=== PATIENT | male | born 1995 | race African-American/Black ===

== ENCOUNTER 2019-10-08 02:09 | Emergency (ER) | payer OTHER, SELFPAY ==
--- NOTE | ~2019-10-08 | CT_ITS ---
EXAMINATION: CT brain wo con EXAM DATE: 10/08/2019 03:01 INDICATION: Headaches, posterior head and neck pain. TECHNIQUE: Spiral CT of the head was performed without contrast. Axial, coronal and sagittal images were reviewed. The dose-length product (DLP) for this examination was 681.00 mGy-cm. The exposure w as tailored according to patient size, and iterative reconstruction (ASIR) was used as additional dos e reduction technique. Comparison is made to prior examination from 11/28/2016. FINDINGS: There is no acute intraparenchymal hemorrhage. No evidence of intraparenchymal brain mass lesion. No evidence of acute infarction. There is no mass effect or midline shift. The ventricles are normal in size. There are no extra-axial collections. There are no acute calvarial fractures. T he orbits are unremarkable. Soft tissue is unremarkable. The visualized sinuses and mastoid air hernandez ls are well aerated. IMPRESSION: 1. No acute intracranial findings. Reviewed, dictated and finalized at location A.
[2019-10-08 02:17] VITALS: BP 176/97; PULSE 104; RESP 23; TEMP 36.7; O2SAT 100
--- NOTE | 2019-10-08 02:32 | ECG_ITS ---
Measurements Intervals [place] Rate: 84 P: 15 [place]: 225 QRS: 51 QRSD: 102 T: 6 QT: 343 QTc: 406 Interpretive Statements SINUS RHYTHM WITH FIRST DEGREE AV BLOCK ABNORMAL ECG Electronically Signed On 10-08-2019 6:58:18 CDT by Blaine Alvarez D.O.
--- NOTE | 2019-10-08 02:33 | ED.HA ---
HPI - Headache General Chief Complaint: Headache Stated Complaint: HARRIS, HIGH HR, SHOULDER PAIN Time Seen by Provider: 10/08/19 02:18 Source: patient Mode of arrival: ambulatory Limitations: no limitations History of Present Illness HPI Narrative: This patient is a 24 year old male who presents for evaluation of a headache. Patient states around 1030 pm tonight he developed mild headache to top of his headache. Over past 2 hours his headache has worsened. He describes throbbing pain that radiates down his neck and into his shoulders. His pain is worse with movement of his headache. He also reports nausea and vomiting but he thinks that may be due to his GERD. HE denies weakness, fever, sob, cough, numbness or tingling. He took claritin for allergies after onset of his headache. MD elicited complaint: headache Related Data Allergies Allergy/AdvReac Type Severity Reaction Status Date / Time No Known Allergies Allergy Verified 10/08/19 02:21 Review of Systems Review of Systems: All systems reviewed & are unremarkable except as noted in HPI and below Constitutional: Constitutional: Denies chills and Denies fever(s) Eyes: Eyes: Denies change in vision and Denies photophobia ENT: Denies dizziness and Denies nasal congestion Cardiovascular: Cardiovascular: Denies chest pain Respiratory: Respiratory: Denies cough and Denies dyspnea Gastrointestinal: Gastrointestinal: Denies abdominal pain, Reports nausea and Reports vomiting Neurologic: Denies dizziness, Reports headache(s), Denies focal weakness, Denies numbness and Denies weakness PMFSH Past Medical History Medical History (Updated 10/08/19 @ 04:56 by Ida Shaffer MD) GERD (gastroesophageal reflux disease) Surgical History Surgical History (Updated 10/08/19 @ 02:34 by Ida Shaffer MD) No significant past surgical history Social History Social History (Updated 10/08/19 @ 02:35 by Ida Shaffer MD) Tobacco type: e-cigarettes/vaping Alcohol intake: current Substance use type: marijuana Gender identity (if verbalized by the patient): Male Exam Narrative: Exam Narrative: GENERAL: Well-appearing, well-nourished, and in no acute distress. HEAD: Normocephalic, atraumatic EYES: PERRLA and EOMI, conjunctiva clear without discharge EARS: TM's clear bilaterally without erythema or dullness NOSE: Nares clear, no rhinorrhea or epistaxis THROAT:Mucous membranes moist, Oropharynx normal without erythema, exudate, peritonsillar swelling or fluctuance NECK: Supple, without lymphadenopathy or mass RESPIRATORY: No respiratory distress, Airway patent, Respirations non-labored, Clear to auscultation without rales, rhonchi or wheeze HEART: Regular rate and rhythm. No murmur heard. Normal peripheral pulses. ABDOMEN: Soft, nontender, nondistended, normal active bowel sounds. No masses. No rebound or guarding, No organomegaly. EXTREMITIES: No edema, normal strength with full range of motion. SKIN: Warm, dry, normal color without rash NEURO: Alert and oriented x3. CN 2-12 grossly intact. No focal deficits. PSYCH: Normal mood and affect. Neck: Neck: full ROM, no lymphadenopathy, no meningeal signs, trachea midline, supple and tender (paraspinal muscle tenderness) Thyroid: thyroid normal Course Reevaluation(s) Reevaluation #1: PAtient reports that his headache has resolved. His blood pressure has also normalized to 133/87. I Discussed discharge plan with patient. Date: 10/08/19 Time: 04:54 Vital Signs Vital signs: Vital Signs Temperature 98.1 F 10/08/19 02:17 Pulse Rate 104 H 10/08/19 02:17 Respiratory Rate 23 H 10/08/19 02:17 Blood Pressure 176/97 H 10/08/19 02:17 Pulse Oximetry 100 10/08/19 02:17 Temperature 98.1 F 10/08/19 02:17 Pulse Rate 85 10/08/19 03:49 Respiratory Rate 20 10/08/19 03:49 Blood Pressure 144/79 H 10/08/19 03:49 Pulse Oximetry 97 10/08/19 03:49 MDM - Headache Differential
[2019-10-08] MEDS: ONDANSETRON INJ 4 MG/2 ML VIAL IV PUSH (02:43)
[2019-10-08] MEDS: diazePAM 5 MG TABLET PO (02:44)
[2019-10-08 02:52] VITALS: BP 168/95; PULSE 82; RESP 20; O2SAT 99
[2019-10-08 03:49] VITALS: BP 144/79; PULSE 85; RESP 20; O2SAT 97
== END 2019-10-08 05:29 | disposition home or self-care (01) ==
PROVIDERS: Emergency Provider General Practice
DX: G44.209 Tension-type headache, unspecified, not intractable (principal); K21.9 Gastro-esophageal reflux disease without esophagitis; F17.290 Nicotine dependence, other tobacco product, uncomplicated; I44.0 Atrioventricular block, first degree
CPT/HCPCS: 70450; 93005; 96365; 96375; 99284; A9270; J0131; J2405

== ENCOUNTER 2020-02-16 16:03 | Emergency (ER) | payer OTHER, SELFPAY ==
--- NOTE | ~2020-02-16 | XR_ITS ---
EXAMINATION: XR chest 1V portable INDICATION: Vomiting and chest pain TECHNIQUE: Portable AP chest at 1725 hours COMPARISON: 09/15/2017 FINDINGS: The lungs are free of acute opacities. There is no pleural effusion or pneumothorax. The ca rdiomediastinal silhouette is normal. The visualized bones and soft tissues are unremarkable. IMPRESSION: 1. No acute cardiopulmonary abnormality. Reviewed, dictated and finalized at location A. ORT DUTY MANAGER
[2020-02-16 16:11] VITALS: BP 152/90; PULSE 96; RESP 20; TEMP 37; O2SAT 100
--- NOTE | 2020-02-16 17:45 | PC.NURSE ---
patient brought to ED room 19 from ED room 7 with c/o headache, nausea and abdomen pain. see initial notes. alert. oriented. no change in condition from time of triage. ambulatory. fiancee at bedside. assessments documented. SL inserted. labs drawn.
[2020-02-16 17:49] LABS: Basophils Percent Auto 0.3 % (0.2-1.2); Eosinophils Absolute Auto 0.1 K/mm3 (0-0.3); Hematocrit 42.8 % (42.0-52.0); Hemoglobin 14.1 g/dL (14.0-18.0); Immature Granulocyte Absolute 0.01 K/mm3 (0.00-0.031); Immature Granulocyte Percent A 0.3 % (0-0.5); Lymphocytes Absolute Auto 0.93 K/mm3 (0.9-3.2); Lymphocytes Percent Auto 23.5 % (18.3-44.2); Mean Corpuscular HGB Conc 32.9 g/dl (32-36); Mean Corpuscular Hemoglobin 29.1 pg (26-34); Mean Corpuscular Volume 88.4 fl (80-100); Mean Platelet Volume 9.6 fl (7.4-10.4); Monocytes Absolute Auto 0.6 K/mm3 (0.1-0.6); Monocytes Percent Auto 15.7 % (2.6-8.5); Neutrophils Absolute Auto 2.3 K/mm3 (1.3-6.7); Neutrophils Percent Auto 58.2 % (45.5-73.1); Platelet Count Result 223 k/mm3 (150-375); Red Blood Count 4.84 M/mm3 (4.6-6.20); Red Cell Distribution Width 13.2 % (11.5-14.5)
[2020-02-16 18:02] LABS: Alanine Aminotransferase 23 U/L (4-50); Albumin Level 4.3 g/dL (3.5-5.1); Alkaline Phosphatase 95 U/L (38-126); Anion Gap 7 mmol/L (8-16); Aspartate Amino Transferase 20 U/L (17-59); Bilirubin,Total 0.3 mg/dL (0.2-1.3); Blood Urea Nitrogen 7 mg/dL (9-20); Carbon Dioxide 29 mmol/L (22-30); Chloride 101 mmol/L (98-107); Estimated CRCL calculation 159 ml/min; Estimated Glomerular Filt Rate > 60; Glucose 89 mg/dL (75-110); Lipase 159 U/L (23-300); Potassium 3.8 mmol/L (3.4-5.0); Sodium 137 mmol/L (137-145)
--- NOTE | 2020-02-16 18:45 | PC.NURSE ---
patient drinking sprite. bladder scan done and provider updated. sitting on stretcher. waiting for urine results. updated on expected wait time.
[2020-02-16] MEDS: ONDANSETRON INJ 4 MG/2 ML VIAL IV PUSH (18:49)
[2020-02-16 18:50] LABS: Add Urine Microscopic? YES; Appearance Urine Clear (Clear); Bacteria Urine Trace /hpf; Bilirubin Urine Negative (Negative); Blood Urine Negative (Negative); Color Urine Yellow (Yellow); Glucose Urine UA Negative (Negative); Ketones Urine Negative (Negative); Leukocyte Esterase Ur Negative LEU/UL (Negative); Mucus Urine Heavy /lpf; Nitrate Urine Negative (Negative); Protein Urine 1+ mg/dL (Negative); RBC Urine 0-2 /hpf (0-2); Urobilinogen Urine Negative mg/dL (<2.0); WBC Urine 0-3 /hpf
[2020-02-16 18:57] LABS: Specific Grav Ur 1.035 (1.001-1.035)
--- NOTE | 2020-02-16 19:58 | ED.GENADULT ---
HPI - General Adult General Chief complaint: Headache Stated complaint: headache Time Seen by Provider: 02/16/20 17:15 Source: patient Mode of arrival: ambulatory Limitations: no limitations History of Present Illness HPI narrative: Patient presents with chief complaint of diffuse abdominal pain and two episodes of vomiting while at work today. He also reports that he has had a full sensation to his head. Patient states he has a history of hypertension but denies any other health issues. Patient states he also felt he should come in because he noticed that his blood pressure lower when he sat down but when he stood up it elevated. Patient states that he felt warm but has not documented any fevers. Related Data Allergies Allergy/AdvReac Type Severity Reaction Status Date / Time No Known Allergies Allergy Verified 10/08/19 02:21 Review of Systems Review of Systems: Narrative: CONSTITUTIONAL: Reports feeling warm but did not document fever denies chills, or sweats. EYES: Denies visual changes, redness, or discharge. ENT: Denies rhinorrhea, congestion, sore throat, or otalgia. CARDIOVASCULAR: Denies chest pain, palpitations, or edema. RESPIRATORY: Denies cough or dyspnea. GASTROINTESTINAL: Reports diffuse upper abdominal pain, nausea, vomiting denies diarrhea or bloody stools. GENITOURINARY: Denies dysuria or hematuria. SKIN: Denies rash or itching. MUSCULOSKELETAL: Denies back pain, joint pain, or myalgia. NEUROLOGIC: Reports diffuse headache denies numbness, dizziness, or weakness. PSYCHIATRIC: Denies anxiety or depression. [facility] Past Medical History Medical History (Updated 02/16/20 @ 20:02 by Julius Mejia PA-C) GERD (gastroesophageal reflux disease) Surgical History Surgical History (Updated 10/08/19 @ 02:34 by Ida Shaffer MD) No significant past surgical history Social History Social History (Updated 10/08/19 @ 02:35 by Ida Shaffer MD) Tobacco type: e-cigarettes/vaping Alcohol intake: current Substance use type: marijuana Gender identity (if verbalized by the patient): Male Exam Narrative: Exam Narrative: GENERAL: Well-appearing, well-nourished, and in no acute distress. HEAD: Normocephalic, atraumatic. EYES: PERRLA and EOMI. ENT: Nares clear, no rhinorrhea or epistaxis. Mucous membranes moist. Oropharynx without tonsillar hypertrophy exudate or other lesions. Bilateral TMs pearly lowe nonbulging NECK: Supple. No adenopathy or masses. Range of motion intact no nuchal rigidity or stiffness. CHEST: Clear to auscultation. No respiratory distress. No wheezes rales or rhonchi HEART: Regular rate and rhythm. No murmur heard. Normal peripheral pulses. ABDOMEN: Soft, mild LUQ tenderness, nondistended, normal active bowel sounds. EXTREMITIES: Normal range of motion. No edema. SKIN: Warm, dry, no rash. NEURO: No focal deficits. Alert and oriented x3. PSYCH: Normal mood and affect. Course Vital Signs Vital signs: Vital Signs Temperature 98.6 F 02/16/20 16:11 Pulse Rate 96 02/16/20 16:11 Respiratory Rate 20 02/16/20 16:11 Blood Pressure 152/90 H 02/16/20 16:11 Pulse Oximetry 100 02/16/20 16:11 Temperature 98.6 F 02/16/20 16:11 Pulse Rate 96 02/16/20 16:11 Respiratory Rate 20 02/16/20 16:11 Blood Pressure 152/90 H 02/16/20 16:11 Pulse Oximetry 100 02/16/20 16:11 Medical Decision Making MDM Narrative Medical decision making narrative: Patient has improvement in headache and discomfort with Tylenol. Patient has not had any additional vomiting in the emergency room even without administration of Zofran. Patient has been given Zofran for nausea has been able to hold down p.o. challenge. Patient's lab work and urine analysis and chest x-ray is insignificant. Patient instructed to go home rest drink fluids and quarantine himself while his Covid test are pending. Patient is instructed to call the primary care consumer experience consultant to obtain his Covid test results in 48 to 72 h
[2020-02-17 20:04] LABS: SARS-CoV-2 RNA PCR Positive
== END 2020-02-16 20:15 | disposition home or self-care (01) ==
PROVIDERS: Physician Assistant; Emergency Provider Emergency Medicine
DX: R10.84 Generalized abdominal pain (principal); R11.2 Nausea with vomiting, unspecified; K21.9 Gastro-esophageal reflux disease without esophagitis
CPT/HCPCS: 36415; 71045; 80053; 81001; 83690; 85025; 87635; 87804; 96365; 96375; 99284; C9803; J0131; J2405; U0003

== ENCOUNTER 2022-02-15 13:45 | Emergency (ER) | payer SELFPAY ==
--- NOTE | ~2022-02-15 | XR_ITS ---
EXAMINATION: XR chest 2V 02/15/2022 14:28 INDICATION: Mid chest pain. PROCEDURE: 2 view chest COMPARISON: Comparison to multiple prior studies sequentially, with oldest reviewed study dated 12/09. FINDINGS: The lungs are clear. The cardiomediastinal silhouette is within normal limits. There are no pleural effusions. There is no pneumothorax suspected. IMPRESSION: 1: NO ACUTE CARDIOPULMONARY DISEASE. Reviewed, dictated and finalized at location A. L ROLLING MACHINE OPERATOR
[2022-02-15 13:49] VITALS: BP 142/76; PULSE 113; RESP 16; TEMP 36.7; O2SAT 100
--- NOTE | 2022-02-15 13:49 | ECG_ITS ---
Measurements Intervals [place] Rate: 111 P: 53 [place]: 204 QRS: 53 QRSD: 92 T: 51 QT: 325 QTc: 443 Interpretive Statements SINUS TACHYCARDIA WITH FIRST-DEGREE AV BLOCK NONSPECIFIC T-WAVE ABNORMALITY ABNORMAL RHYTHM ECG COMPARED TO ECG 10/08/2019 03:08:53 PATIENT IS MORE TACHYCARDIC NO OTHER CHANGE Electronically Signed On 02-15-2022 17:23:21 [employer] BR[employer]ER by Levi Fontenot M.D.
[2022-02-15 14:13] LABS: Basophils Percent Auto 0.2 % (0.2-1.2); Eosinophils Absolute Auto 0.1 K/mm3 (0-0.3); Eosinophils Percent Auto 2.3 % (0-4.4); Hematocrit 40.7 % (42.0-52.0); Hemoglobin 13.2 g/dL (14.0-18.0); Immature Granulocyte Absolute 0.01 K/mm3 (0.00-0.031); Immature Granulocyte Percent A 0.2 % (0-0.5); Lymphocytes Percent Auto 30.9 % (18.3-44.2); Mean Corpuscular HGB Conc 32.4 g/dl (32-36); Mean Corpuscular Hemoglobin 29.5 pg (26-34); Mean Corpuscular Volume 91.1 fl (80-100); Mean Platelet Volume 9.7 fl (7.4-10.4); Monocytes Absolute Auto 0.4 K/mm3 (0.1-0.6); Monocytes Percent Auto 7.8 % (2.6-8.5); Neutrophils Absolute Auto 2.9 K/mm3 (1.3-6.7); Neutrophils Percent Auto 58.6 % (45.5-73.1); Platelet Count Result 235 k/mm3 (150-375); Red Blood Count 4.47 M/mm3 (4.6-6.20); Red Cell Distribution Width 13.2 % (11.5-14.5); White Blood Count 4.9 K/mm3 (4.5-10.0)
[2022-02-15 14:32] LABS: INR 1.3; Partial Thromboplastin Time 28.3 SECONDS (22.3-36.8); Prothrombin Time 15.2 Seconds (11.1-14.7)
[2022-02-15 14:34] LABS: Alanine Aminotransferase 22 U/L (6-50); Albumin Level 4.5 g/dL (3.5-5.1); Alkaline Phosphatase 69 U/L (38-126); Anion Gap 7 mmol/L (8-16); Aspartate Amino Transferase 19 U/L (17-59); Bilirubin,Total 0.3 mg/dL (0.2-1.3); Blood Urea Nitrogen 12 mg/dL (9-20); Calcium 8.9 mg/dL (8.4-10.2); Carbon Dioxide 29 mmol/L (22-30); Chloride 101 mmol/L (98-107); Estimated CRCL calculation 131 ml/min; Estimated Glomerular Filt Rate > 60; Glucose 90 mg/dL (65-110); Lipase 178 U/L (23-300); Potassium 3.5 mmol/L (3.4-5.0); Sodium 137 mmol/L (137-145)
[2022-02-15 14:45] LABS: Troponin I < 0.012 ng/mL (0.000-0.034)
--- NOTE | 2022-02-15 15:54 | ED.CHESTPAIN ---
HPI - Chest Pain General Chief Complaint: Chest Pain Stated Complaint: chest pain, palpitations and SOB Time Seen by Provider: 02/15/22 15:31 Related Data Allergies Allergy/AdvReac Type Severity Reaction Status Date / Time No Known Allergies Allergy Verified 02/15/22 13:46 [facility] Past Medical History Medical History (Updated 02/15/22 @ 16:36 by Willie Stallings APRN) GERD (gastroesophageal reflux disease) Surgical History Surgical History (Updated 10/08/19 @ 02:34 by Ida Shaffer MD) No significant past surgical history Social History Social History (Updated 10/08/19 @ 02:35 by Ida Shaffer MD) Tobacco type: e-cigarettes/vaping Alcohol intake: current Substance use type: marijuana Gender identity (if verbalized by the patient): Male Course Vital Signs Vital signs: Vital Signs Temperature 36.7 C 02/15/22 13:49 Pulse Rate 113 H 02/15/22 13:49 Respiratory Rate 16 02/15/22 13:49 Blood Pressure 142/76 H 02/15/22 13:49 Pulse Oximetry 100 02/15/22 13:49 Oxygen Delivery Room Air 02/15/22 13:49 Temperature 36.9 C 02/15/22 17:12 Pulse Rate 87 02/15/22 17:12 Respiratory Rate 17 02/15/22 17:12 Blood Pressure 134/84 02/15/22 17:12 Pulse Oximetry 100 02/15/22 17:12 Oxygen Delivery Room Air 02/15/22 13:49 MDM - Chest Pain Lab Data 02/15/22 14:02 02/15/22 14:02 Labs: Lab Results 02/15/22 02/15/22 02/15/22 Range/Units 14:02 14:02 14:02 WBC 4.9 (4.5-10.0) K/mm3 RBC 4.47 L (4.6-6.20) M/mm3 Hgb 13.2 L (14.0-18.0) g/dL Hct 40.7 L (42.0-52.0) % MCV 91.1 (80-100) fl MCH 29.5 (26-34) pg MCHC 32.4 (32-36) g/dl RDW 13.2 (11.5-14.5) % Plt Count 235 (150-375) k/mm3 MPV 9.7 (7.4-10.4) fl Immature Gran % (Auto) 0.2 (0-0.5) % Neut % (Auto) 58.6 (45.5-73.1) % Lymph % (Auto) 30.9 (18.3-44.2) % Schleicher % (Auto) 7.8 (2.6-8.5) % Eos % (Auto) 2.3 (0-4.4) % Baso % (Auto) 0.2 (0.2-1.2) % Lymph # (Auto) 1.50 (0.9-3.2) K/mm3 Schleicher # (Auto) 0.4 (0.1-0.6) K/mm3 Eos # (Auto) 0.1 (0-0.3) K/mm3 Baso # (Auto) 0.0 (0.0-0.1) K/mm3 Abs Immat Gran (auto) 0.01 (0.00-0.031) K/mm3 Absolute Neuts (auto) 2.9 (1.3-6.7) K/mm3 Absolute Nucleated RBC 0.0 (0.0-0.012) K/mm3 Nucleated RBC % 0.0 (0.0-0.2) % PT 15.2 H (11.1-14.7) Seconds INR 1.3 APTT 28.3 (22.3-36.8) SECONDS Sodium 137 (137-145) mmol/L Potassium 3.5 (3.4-5.0) mmol/L Chloride 101 (98-107) mmol/L Carbon Dioxide 29 (22-30) mmol/L Anion Gap 7 L (8-16) mmol/L BUN 12 D (9-20) mg/dL Creatinine 1.00 (0.7-1.3) mg/dL Estim Creat Clear Calc 131 ml/min Estimated GFR > 60 (59 - ) Glucose 90 (65-110) mg/dL Calcium 8.9 (8.4-10.2) mg/dL Total Bilirubin 0.3 (0.2-1.3) mg/dL AST 19 (17-59) U/L ALT 22 (6-50) U/L Alkaline Phosphatase 69 (38-126) U/L Troponin I < 0.012 (0.000-0.034) ng/mL Total Protein 8.0 (6.3-8.2) g/dL Albumin 4.5 (3.5-5.1) g/dL Lipase 178 (23-300) U/L 02/15/22 Range/Units 16:44 WBC (4.5-10.0) K/mm3 RBC (4.6-6.20) M/mm3 Hgb (14.0-18.0) g/dL Hct (42.0-52.0) % MCV (80-100) fl MCH (26-34) pg MCHC (32-36) g/dl RDW (11.5-14.5) % Plt Count (150-375) k/mm3 MPV (7.4-10.4) fl Immature Gran % (Auto) (0-0.5) % Neut % (Auto) (45.5-73.1) % Lymph % (Auto) (18.3-44.2) % Schleicher % (Auto) (2.6-8.5) % Eos % (Auto) (0-4.4) % Baso % (Auto) (0.2-1.2) % Lymph # (Auto) (0.9-3.2) K/mm3 Schleicher # (Auto) (0.1-0.6) K/mm3 Eos # (Auto) (0-0.3) K/mm3 Baso # (Auto) (0.0-0.1) K/mm3 Abs Immat Gran (auto) (0.00-0.031) K/mm3 Absolute Neuts (auto) (1.3-6.7) K/mm3 Absolute Nucleated RBC (0.0-0.012) K/mm3 Nucleated RBC % (0.0-0.2) % PT (11.1-14.7) Seconds INR APTT (22.3-36.8) SECONDS Sodium (137-145) mmol/L [place]
[2022-02-15 17:12] VITALS: BP 134/84; PULSE 87; RESP 17; TEMP 36.9; O2SAT 100
[2022-02-15 17:16] LABS: Troponin I < 0.012 ng/mL (0.000-0.034)
== END 2022-02-15 17:35 | disposition home or self-care (01) ==
PROVIDERS: Emergency Medicine; Emergency Provider Nurse Practitioner Family
DX: R07.89 Other chest pain (principal); K21.9 Gastro-esophageal reflux disease without esophagitis; R00.0 Tachycardia, unspecified; I44.0 Atrioventricular block, first degree; R94.31 Abnormal electrocardiogram [ECG] [EKG]
CPT/HCPCS: 36415; 71046; 80053; 83690; 84484; 85025; 85610; 85730; 93005; 96374; 99284; J1100

== ENCOUNTER 2022-04-03 19:22 | Emergency (ER) | payer SELFPAY ==
[2022-04-03] VITALS (14 sets, daily range): BP systolic 116–140; BP diastolic 79–89; PULSE 59–77; RESP 14–22; TEMP 36.9; O2SAT 93–100
--- NOTE | ~2022-04-03 | US_ITS ---
EXAMINATION: US abdomen limited DATE: 04/03/2022 21:14 INDICATION: RUQ abd pain TECHNIQUE: Multiple grayscale and Doppler ultrasound images of limited portions of the abdomen were o btained. COMPARISON: None available. FINDINGS: Pancreas is poorly visualized. The liver is mildly enlarged with normal echogenicity and ec hotexture. No surface nodularity. Normal hepatopetal flow in the main portal vein. The gallbladder is contracted and therefore inadequately evaluated. No pericholecystic fluid. No definite gallstone. Th e common bile duct measures 4 mm. There was no sonographic Noland sign. IMPRESSION: Contracted gallbladder which significantly limits evaluation. Pancreas is secured by bowel gas. No in tra or extrahepatic bile duct dilation. Mild hepatomegaly Reviewed, dictated and finalized at location K. OSION CONTROL ENGINEER IMPRESSION: Contracted gallbladder which significantly limits evaluation. Pancreas is secur ed by bowel gas. No intra or extrahepatic bile duct dilation. Mild hepatomegaly
[2022-04-03 20:10] LABS: Basophils Percent Auto 0.3 % (0.2-1.2); Eosinophils Absolute Auto 0.2 K/mm3 (0-0.3); Eosinophils Percent Auto 2.9 % (0-4.4); Hematocrit 41.5 % (42.0-52.0); Hemoglobin 13.4 g/dL (14.0-18.0); Immature Granulocyte Absolute 0.01 K/mm3 (0.00-0.031); Immature Granulocyte Percent A 0.2 % (0-0.5); Lymphocytes Absolute Auto 2.87 K/mm3 (0.9-3.2); Lymphocytes Percent Auto 46.5 % (18.3-44.2); Mean Corpuscular HGB Conc 32.3 g/dl (32-36); Mean Corpuscular Hemoglobin 29.4 pg (26-34); Mean Platelet Volume 9.8 fl (7.4-10.4); Monocytes Absolute Auto 0.6 K/mm3 (0.1-0.6); Monocytes Percent Auto 9.1 % (2.6-8.5); Neutrophils Absolute Auto 2.5 K/mm3 (1.3-6.7); Platelet Count Result 252 k/mm3 (150-375); Red Blood Count 4.56 M/mm3 (4.6-6.20); Red Cell Distribution Width 13.1 % (11.5-14.5); White Blood Count 6.2 K/mm3 (4.5-10.0)
--- NOTE | 2022-04-03 20:11 | ED.ABDPAIN ---
HPI - Abdominal Pain General Chief Complaint: Abdominal Pain Stated Complaint: abdominal pain Time Seen by Provider: 04/03/22 19:50 History of Present Illness HPI narrative: 26-year-old male here for evaluation of epigastric abdominal pain over the past 2 days. He describes the pain as a burning sensation, associated with nausea, vomiting diarrhea. Reports decreased interest in p.o. over the past several days. He has a history of acid reflux but states this feels different. He denies any fevers, chills, blood in his stools or vomit, sick contacts. Last p.o. intake was chicken pot pie. Related Data Allergies Allergy/AdvReac Type Severity Reaction Status Date / Time No Known Allergies Allergy Verified 04/03/22 19:49 Review of Systems Review of Systems: Gen: Denies fevers or chills Eyes: Denies eye pain or visual change ENT: Denies congestion Respiratory: Denies shortness of breath or cough CV: Denies chest pain or palpitations GI: Reports abdominal pain, nausea, vomiting and diarrhea : denies burning, urgency, frequency or hematuria Musculoskeletal: Denies back pain or muscle pain Neuro: Denies numbness, tingling, weakness or focal weakness Skin: Denies rash Except as documented, all other systems reviewed and negative PMFSH Past Medical History Medical History GERD (gastroesophageal reflux disease) Surgical History Surgical History No significant past surgical history Social History Social History (Updated 10/08/19 @ 02:35 by Ida Shaffer MD) Tobacco type: e-cigarettes/vaping Alcohol intake: current Substance use type: marijuana Gender identity (if verbalized by the patient): Male Exam Narrative: APPEARANCE: Well appearing, no pain in distress, well-nourished. Head: Normocephalic and atraumatic. EYES: PERRLA/EOMI, conjunctivae clear NOSE: No nasal drainage EARS: External ear normal in appearance THROAT: Oropharynx is clear. Mucous membranes are moist. NECK: Supple. No adenopathy, no masses. RESPIRATORY: Airway patent, respirations nonlabored. Clear to auscultation bilaterally, no rales, rhonchi, wheezing. CARDIOVASCULAR: Regular rate and rhythm without murmurs, rubs, or gallops. ABDOMINAL: No abdominal tenderness to palpation. Normoactive bowel sounds. Soft, nondistended. No rebound tenderness or guarding. MUSCULOSKELETAL: Extremities are warm and well-perfused. Moves all extremities well. No edema. NEURO: Normal speech. No focal neurologic deficits. SKIN: Skin is warm and dry. No rashes. PSYCHIATRIC: Normal affect/mood. Course Vital Signs Vital signs: Vital Signs Temperature 98.4 F 04/03/22 19:42 Pulse Rate 77 04/03/22 19:42 Respiratory Rate 16 04/03/22 19:42 Blood Pressure 140/83 04/03/22 19:42 Pulse Oximetry 100 04/03/22 19:42 Oxygen Delivery Room Air 04/03/22 19:42 Temperature 98.4 F 04/03/22 19:42 Pulse Rate 71 04/03/22 21:45 Respiratory Rate 18 04/03/22 21:45 Blood Pressure 132/89 04/03/22 21:45 Pulse Oximetry 100 04/03/22 21:45 Oxygen Delivery Room Air 04/03/22 19:42 MDM - Abdominal Pain MDM Narrative Medical decision making narrative: 26-year-old healthy male here for evaluation epigastric abdominal burning for the past day. Referred from urgent care for abdominal imaging due to tenderness in the right upper quadrant. Patient is nontoxic-appearing and has normal vital signs; he has no abdominal tenderness on exam in the ED. His white count is normal. Lipase is normal. Liver enzymes are normal. Given the findings of right upper quadrant tenderness at urgent care, an abdominal ultrasound was obtained which was negative, within constraints of a contracted gallbladder. Patient feeling improved after fluids Zofran and Pepcid, tolerating PO. Likely gastritis versus gastroenteritis. He will be discharged latanya
[2022-04-03] MEDS: ONDANSETRON INJ 4 MG/2 ML VIAL IV PUSH (20:15)
[2022-04-03] MEDS: SODIUM CHLORIDE 0.9% IV 1,000 ML 999 ML IV CONT (20:15)
[2022-04-03] MEDS: FAMOTIDINE 20 MG/2 ML VIAL IV PUSH (20:15)
[2022-04-03 20:22] LABS: Alanine Aminotransferase 18 U/L (6-50); Albumin Level 4.1 g/dL (3.5-5.1); Alkaline Phosphatase 65 U/L (38-126); Anion Gap 5 mmol/L (8-16); Aspartate Amino Transferase 17 U/L (17-59); Bilirubin,Total 0.3 mg/dL (0.2-1.3); Blood Urea Nitrogen 8 mg/dL (9-20); Calcium 8.5 mg/dL (8.4-10.2); Carbon Dioxide 29 mmol/L (22-30); Chloride 106 mmol/L (98-107); Estimated CRCL calculation 162 ml/min; Estimated Glomerular Filt Rate > 60; Glucose 95 mg/dL (65-110); Lipase 185 U/L (23-300); Sodium 140 mmol/L (137-145)
[2022-04-03 20:58] LABS: Appearance Urine Clear (Clear); Bilirubin Urine Negative (Negative); Blood Urine Negative (Negative); Color Urine Yellow (Yellow); Glucose Urine UA Negative (Negative); Ketones Urine Negative (Negative); Leukocyte Esterase Ur Negative LEU/UL (Negative); Nitrate Urine Negative (Negative); Protein Urine Negative (Negative); Specific Grav Ur 1.025 (1.001-1.035); Urobilinogen Urine 0.2 mg/dL (<2.0); pH Urine 5.5 (5.0-9.0)
[2022-04-03 21:05] LABS: Mucus Urine Few /lpf; RBC Urine 0-2 /hpf (0-2); Squamous Epithelial Cell Urine Rare /hpf (Few); WBC Urine 0-3 /hpf
[2022-04-03 21:09] LABS: Add Urine Microscopic? NO
== END 2022-04-03 22:00 | disposition home or self-care (01) ==
PROVIDERS: Emergency Provider Physician Assistant
DX: K52.9 Noninfective gastroenteritis and colitis, unspecified (principal)
CPT/HCPCS: 36415; 76705; 80053; 81003; 83690; 85025; 96361; 96374; 96375; 99284; J2405; J7030

== ENCOUNTER 2023-04-23 17:28 | Emergency (ER) | payer SELFPAY ==
--- NOTE | ~2023-04-23 | XR_ITS ---
EXAMINATION: XR chest 2V DATE: 04/23/2023 18:23 INDICATION: Worsening chest pain radiating into the neck TECHNIQUE: PA and lateral views of the chest were obtained. COMPARISON: Chest radiograph dated 02/15/2022 FINDINGS: The lungs remain clear with no focal airspace opacities, pulmonary edema, pleural effusion or pneumot horax. The cardiomediastinal silhouette is normal. Visualized bones and soft tissues are unremarkable . IMPRESSION: 1. Normal chest radiograph. Reviewed, dictated and finalized at location A. ETRICS SPECIALIST IMPRESSION: 1. Normal chest radiograph.
--- NOTE | 2023-04-23 17:29 | ECG_ITS ---
Measurements Intervals [place] Rate: 83 P: 48 [place]: 222 QRS: 46 QRSD: 96 T: 47 QT: 341 QTc: 401 Interpretive Statements SINUS RHYTHM WITH FIRST DEGREE AV BLOCK COMPARED TO ECG 02/15/2022 13:54:31 SINUS RHYTHM NOW PRESENT Electronically Signed On 04-24-2023 12:35:07 CALL BOX WIRER by Gilberto Herron M.D.
[2023-04-23 17:53] VITALS: BP 130/86; PULSE 77; RESP 16; TEMP 36.7; O2SAT 99
[2023-04-23 17:59] LABS: Basophils Percent Auto 0.2 % (0.2-1.2); Eosinophils Absolute Auto 0.2 K/mm3 (0-0.3); Eosinophils Percent Auto 3.3 % (0-4.4); Hematocrit 40.3 % (42.0-52.0); Hemoglobin 12.7 g/dL (14.0-18.0); Immature Granulocyte Absolute 0.01 K/mm3 (0.00-0.031); Immature Granulocyte Percent A 0.2 % (0-0.5); Lymphocytes Absolute Auto 1.55 K/mm3 (0.9-3.2); Lymphocytes Percent Auto 29.6 % (18.3-44.2); Mean Corpuscular HGB Conc 31.5 g/dl (32-36); Mean Corpuscular Hemoglobin 29.1 pg (26-34); Mean Corpuscular Volume 92.4 fl (80-100); Mean Platelet Volume 9.6 fl (7.4-10.4); Monocytes Absolute Auto 0.5 K/mm3 (0.1-0.6); Monocytes Percent Auto 9.4 % (2.6-8.5); Neutrophils Percent Auto 57.3 % (45.5-73.1); Platelet Count Result 249 k/mm3 (150-375); Red Blood Count 4.36 M/mm3 (4.6-6.20); Red Cell Distribution Width 13.2 % (11.5-14.5); White Blood Count 5.2 K/mm3 (4.5-10.0)
[2023-04-23 18:10] LABS: Alanine Aminotransferase 17 U/L (6-50); Albumin Level 4.1 g/dL (3.5-5.1); Alkaline Phosphatase 63 U/L (38-126); Anion Gap 5 mmol/L (8-16); Aspartate Amino Transferase 19 U/L (17-59); Bilirubin,Total 0.4 mg/dL (0.2-1.3); Blood Urea Nitrogen 11 mg/dL (9-20); Calcium 9.2 mg/dL (8.4-10.2); Carbon Dioxide 27 mmol/L (22-30); Chloride 106 mmol/L (98-107); Estimated CRCL calculation 144 ml/min; Estimated Glomerular Filt Rate > 60; Glucose 93 mg/dL (65-110); INR 1.2; Lipase 141 U/L (23-300); Potassium 3.9 mmol/L (3.4-5.0); Prothrombin Time 15.3 Seconds (11.1-14.7); Sodium 138 mmol/L (137-145)
[2023-04-23 18:11] LABS: Partial Thromboplastin Time 29.7 SECONDS (22.3-36.8)
[2023-04-23 18:24] LABS: Troponin I < 0.012 ng/mL (0.000-0.034)
--- NOTE | 2023-04-23 20:23 | PC.NURSE ---
No answer at triage
--- NOTE | 2023-04-23 20:58 | PC.NURSE ---
attempted to call patient to ask about leaving with IV access. number in chart has been disconnected
--- NOTE | 2023-04-23 21:08 | PC.NURSE ---
police called to make a wellness check on patient and to ask to return to er to have IV removed
== END 2023-04-23 20:56 | disposition left against medical advice (07) ==
PROVIDERS: Emergency Provider Emergency Medicine
DX: R07.9 Chest pain, unspecified (principal)
CPT/HCPCS: 36415; 71046; 80053; 83690; 84484; 85025; 85610; 85730; 93005; 99199

== ENCOUNTER 2024-03-07 18:05 | Emergency (ER) | payer BC, SELFPAY ==
--- NOTE | ~2024-03-07 | CT_ITS ---
History: New headache with vision change PROCEDURE: CT head without contrast. COMPARISON: 10/07/2019 TECHNIQUE: Axial imaging of the head performed from the skull base to the vertex without IV contrast. Sagittal a nd coronal reformations obtained. DLP: 681 mGy-cm FINDINGS: The ventricles are normal in size, shape and position. There is no mass, mass effect or midline shift. There is no abnormal extra-axial fluid collection or intracranial hemorrhage. Visualized paranasal sinuses are clear. The mastoid air cells are well aerated. No acute displaced fractures within the overlying cranium. Impression: No acute intracranial hemorrhage or suspicious mass effect. Reviewed, dictated and finalized at location A. [facility] Impression: No acute intracranial hemorrhage or suspicious mass effect.
[2024-03-07 20:11] VITALS: BP 158/100; PULSE 68; RESP 18; TEMP 36.7; O2SAT 100
--- NOTE | 2024-03-07 21:01 | ED.RECABL ---
HPI - Recheck/Abnormal Lab/Rx General Chief Complaint: Recheck/Abnormal Lab/Rx Stated Complaint: high blood pressure Time Seen by Provider: 03/07/24 20:58 Source: patient Mode of arrival: ambulatory Limitations: no limitations History of Present Illness HPI narrative: This is a 28-year-old male who presents to the ED for multiple complaints. He has concern is he has had increasing headaches over the past 3 days. He is concerned because his work clinic stated his blood pressure was too high. Reports associated blurry vision, dizziness. States that several days ago he was having panic attacks. States that since then he is having these symptoms of headache. States he is also having tingling to the back of the head, face as well as all 4 extremities. States that he has to see Psychiatry 8 months ago for bipolar and anxiety but does not have a psychiatrist anymore. States that he is not taking any medications. Related Data Allergies Allergy/AdvReac Type Severity Reaction Status Date / Time No Known Allergies Allergy Verified 03/07/24 18:06 Review of Systems Review of Systems: All systems as dictated in HPI [facility] Past Medical History Medical History GERD (gastroesophageal reflux disease) Surgical History Surgical History No significant past surgical history Social History Social History (Updated 10/08/19 @ 02:35 by Ida Shaffer MD) Tobacco type: e-cigarettes/vaping Alcohol intake: current Substance use type: marijuana Gender identity (if verbalized by the patient): Male Exam Narrative: GENERAL: Well-appearing, well-nourished, and in no acute distress. HEAD: Normocephalic, atraumatic. EYES: PERRLA and EOMI. ENT: Nares clear, no rhinorrhea or epistaxis. Mucous membranes moist. Oropharynx without tonsillar hypertrophy exudate or other lesions. NECK: Supple. No adenopathy or masses. CHEST: No respiratory distress. Clear to auscultation. No wheezes rales or rhonchi HEART: Regular rate and rhythm. No murmur heard. Normal peripheral pulses. ABDOMEN: Soft, nontender, nondistended, normal active bowel sounds. MSK: Normal range of motion. No edema. SKIN: Warm, dry, no rash. NEURO: Alert and oriented x4. No focal deficits. PSYCH: Normal mood and affect. Course Vital Signs Vital signs: Vital Signs Temperature 98.1 F 03/07/24 20:11 Pulse Rate 68 03/07/24 20:11 Respiratory Rate 18 03/07/24 20:11 Blood Pressure 158/100 H 03/07/24 20:11 Pulse Oximetry 100 03/07/24 20:11 Temperature 98.3 F 03/07/24 23:22 Pulse Rate 88 03/07/24 23:22 Respiratory Rate 18 03/07/24 23:22 Blood Pressure 133/76 03/07/24 23:22 Pulse Oximetry 99 03/07/24 23:22 MDM - Recheck/Abnormal Lab/Rx MDM Narrative Medical decision making narrative: This is a 28-year-old male who presents to the ED for headaches, high blood pressure and anxiety. Vitals are normal. Exam remarkable for the above. No red flag signs for headache. No neurologic deficits. Lab work is unremarkable. Head CT shows no acute findings. EKG shows sinus rhythm with benign early repolarization Presentation consistent with headaches and anxiety. Patient will be discharged in stable condition. Supportive measures discussed and return precautions given. Patient is understanding and agreeable with plan for discharge with PCP follow-up. Lab Data 03/07/24 21:37 03/07/24 21:37 Labs: Lab Results 03/07/24 Range/Units 21:37 WBC 5.0 (4.5-10.0) K/mm3 RBC 4.69 (4.6-6.20) M/mm3 Hgb 13.7 L (14.0-18.0) g/dL Hct 41.8 L (42.0-52.0) % MCV 89.1 (80-100) fl MCH 29.2 (26-34) pg MCHC 32.8 (32-36) g/dl RDW 13.2 (11.5-14.5) % Plt Count 239 (150-375) k/mm3 MPV 10.3 (7.4-10.4) fl Immature Gran % (Auto) 0.2 (0-0.5) % Neut % (Auto) 52.7 (45.5-73.1) % Lymph % (Auto) 31.5 (18.3-44.2) % [place] % (Auto) 10.6 H (2.6-8.5) % Eos % (Auto) 4.8 H (0-4.4) % Baso % (Auto) 0.2 (0.2-1.2) % Lymph # (Auto) 1.58 (0.9-3.2) K/mm3 [place] # (Auto) 0.5 (0.1-0.6) K/mm3 Eos # (Auto) 0.2 (0-0.3) K/mm3 Baso # (Auto) 0.0 (0.0-0.1) K/mm3 Abs Immat Gran (auto) 0.01 (0.00-0.031) K/mm3 Absolute Neuts (auto) 2.7 (1.3-6.7) K/mm3 Absolute Nucleated RBC 0.000 (0.0-0.012) K/mm3 Nucleated RBC % 0.0 (0.0-0.2) % Sodium 136 L (137-145) mmol/L Potassium 4.1 (3.4-5.0) mmol/L Chloride 105 (98-107) mmol/L Carbon Dioxide 29 (22-30) mmol/L Anion Gap 2 L (4-12) mmol/L BUN 10 (9-20) mg/dL Creatinine 0.80 (0.7-1.3) mg/dL Estim Creat Clear Calc 164 ml/min Estimated GFR > 60 (59 - ) Glucose 86 (65-110) mg/dL Calcium 9.2 (8.4-10.2) mg/dL Total Bilirubin 0.5 (0.2-1.3) mg/dL AST 22 (17-59) U/L ALT 33 (6-50) U/L Alkaline Phosphatase 57 (38-126) U/L Total Protein 8.0 (6.3-8.2) g/dL Albumin 4.2 (3.5-5.1) g/dL ECG Data EKG #1: ECG completion date: 03/07/24 ECG completion time: 22:03 Prior ECG tracings: available for review Interpretation: Sinus rhythm with sinus arrhythmia Rate 62 Normal QRS Normal QTC Benign early repolarization in the inferior and lateral leads. Discharge Plan Discharge Clinical Impression: Anxiety, Headache Patient Disposition: Home, Self-Care Condition: Stable Instructions: Antibiotic Form Additional Instructions: Your seen in the ED today for elevated blood pressures and headaches. Your exam and imaging today are reassuring. Please take Tylenol and ibuprofen regularly every 4-6 hours for headaches. Follow-up with PCP regarding blood pressures. If you have any new or worsening symptoms please return to the ER for further evaluation. Patient Language: Portuguese Prescriptions: No Action cyclobenzaprine 10 mg tablet 10 mg PO TID PRN (Reason: muscle spasm) Qty: 14 0RF naproxen 500 mg tablet 500 mg PO BID PRN (Reason: pain) Qty: 14 0RF ondansetron HCl [Zofran] 4 mg tablet 4 mg PO Q8H PRN (Reason: nausea and vomiting) Qty: 10 0RF omeprazole 20 mg capsule,delayed release(DR/EC) 20 mg PO DAILY Qty: 14 0RF ondansetron 4 mg tablet,disintegrating 4 mg PO Q8H PRN (Reason: nausea and vomiting) Qty: 10 0RF ondansetron HCl [Zofran] 4 mg tablet 4 mg PO Q8H PRN (Reason: nausea and vomiting) Qty: 10 0RF omeprazole 20 mg capsule,delayed release(DR/EC) 20 mg PO DAILY Qty: 10 0RF prednisone 20 mg tablet 60 mg PO DAILY 5 Days Qty: 15 0RF Follow-up/Referrals: Yovani Marr MD [Physician] - UNKNOWN,DOCTOR [Non-Staff] - Time of Disposition: 23:19
[2024-03-07 21:03] VITALS: RESP 15
[2024-03-07 21:05] VITALS: BP 130/82; PULSE 61; RESP 15; TEMP 36.6; O2SAT 100
[2024-03-07 21:27] VITALS: BP 130/80; PULSE 69; RESP 16; TEMP 36.6; O2SAT 100
--- NOTE | 2024-03-07 21:32 | ECG_ITS ---
Test Date: 2024-03-07 22:03:24 Measurements Intervals [place] Rate: 62 P: 37 TN: 209 QRS: 41 QRSD: 105 T: 33 QT: 384 QTc: 392 Interpretive Statements SINUS RHYTHM WITH SINUS ARRHYTHMIA No previous ECG available for comparison Electronically Signed On 03-08-2024 18:22:31 [employer] by Harika Mcdonald M.D.
[2024-03-07] MEDS: KETOROLAC 15 MG/ML VIAL (*BKC) IV PUSH (21:42)
[2024-03-07] MEDS: ACETAMINOPHEN 500 MG TABLET 1000 MG PO (21:42)
[2024-03-07 21:43] LABS: Basophils Percent Auto 0.2 % (0.2-1.2); Eosinophils Absolute Auto 0.2 K/mm3 (0-0.3); Eosinophils Percent Auto 4.8 % (0-4.4); Hematocrit 41.8 % (42.0-52.0); Hemoglobin 13.7 g/dL (14.0-18.0); Immature Granulocyte Absolute 0.01 K/mm3 (0.00-0.031); Immature Granulocyte Percent A 0.2 % (0-0.5); Lymphocytes Absolute Auto 1.58 K/mm3 (0.9-3.2); Lymphocytes Percent Auto 31.5 % (18.3-44.2); Mean Corpuscular HGB Conc 32.8 g/dl (32-36); Mean Corpuscular Hemoglobin 29.2 pg (26-34); Mean Corpuscular Volume 89.1 fl (80-100); Mean Platelet Volume 10.3 fl (7.4-10.4); Monocytes Absolute Auto 0.5 K/mm3 (0.1-0.6); Monocytes Percent Auto 10.6 % (2.6-8.5); Neutrophils Absolute Auto 2.7 K/mm3 (1.3-6.7); Neutrophils Percent Auto 52.7 % (45.5-73.1); Platelet Count Result 239 k/mm3 (150-375); Red Blood Count 4.69 M/mm3 (4.6-6.20); Red Cell Distribution Width 13.2 % (11.5-14.5)
[2024-03-07] MEDS: diphenhydrAMINE HCl INJ 50 MG/ML VIAL 25 MG IV PUSH (21:43)
[2024-03-07 22:43] LABS: Alanine Aminotransferase 33 U/L (6-50); Albumin Level 4.2 g/dL (3.5-5.1); Alkaline Phosphatase 57 U/L (38-126); Anion Gap 2 mmol/L (4-12); Aspartate Amino Transferase 22 U/L (17-59); Bilirubin,Total 0.5 mg/dL (0.2-1.3); Blood Urea Nitrogen 10 mg/dL (9-20); Calcium 9.2 mg/dL (8.4-10.2); Carbon Dioxide 29 mmol/L (22-30); Chloride 105 mmol/L (98-107); Estimated CRCL calculation 164 ml/min; Estimated Glomerular Filt Rate > 60; Glucose 86 mg/dL (65-110); Potassium 4.1 mmol/L (3.4-5.0); Sodium 136 mmol/L (137-145)
[2024-03-07 23:22] VITALS: BP 133/76; PULSE 88; RESP 18; TEMP 36.8; O2SAT 99
== END 2024-03-07 23:28 | disposition home or self-care (01) ==
PROVIDERS: Emergency Provider Physician Assistant
DX: F41.9 Anxiety disorder, unspecified (principal); R51.9 Headache, unspecified; K21.9 Gastro-esophageal reflux disease without esophagitis
CPT/HCPCS: 36415; 70450; 80053; 85025; 93005; 96374; 96375; 99284; A9270; J1200; J1885